=== PATIENT | male | born 1990 | race African-American/Black ===

== ENCOUNTER 2019-05-25 22:36 | Emergency (ER) | payer OTHER ==
[2019-05-25 22:44] VITALS: BP 131/76; PULSE 103; TEMP 98.3; BMI 20.7
--- NOTE | 2019-05-26 00:53 | PDOC ---
Suture Removal/Wound Check HPI - History of Present Illness Chief Complaint: Revisit,Wound Recheck Stated Complaint: WOUND Time Seen by Provider: 05/26/19 00:04 History Source: Yes: Patient Exam Limitations: Yes: No Limitations Treated at: [facility] Date of Last ED visit: 05/23/19 - Previous ED Treatment Type of procedure performed on last visit: Yes: Other Antibiotics Prescribed: Yes - Onset of Previous Treatment Comment:: 05/26/19 00:52 Patient reports erythema and swelling have significant decreased s/p taking 2 days of Bactrim. Patient now has drainage pustule to R elbow, purulent drainage expressed; wound cx sent. Patient continues to have FROM to R elbow, no pain with flexion/ extension. Advised patient to use warm compress 4x daily and to continue abx as prescribed. Advised patient of signs and symptoms for return to ER; patient verbalized understanding and agrees to plan. Past History - Past Medical History Allergies/Adverse Reactions: Allergies Allergy/AdvReac Type Severity Reaction Status Date / Time No Known Allergies Allergy Verified 05/25/19 22:42 COPD: No - Suicide/Smoking/Psychosocial Hx Smoking History: Never smoked *Physical Exam - Vital Signs Last Vital Signs Temp Pulse Resp BP Pulse Ox 98.3 F 103 H 18 131/76 96 05/25/19 22:42 05/25/19 22:42 05/25/19 22:42 05/25/19 22:42 05/25/19 22:42 *DC/Admit/Observation/Transfer Diagnosis at time of Disposition: Wound check, abscess - Discharge Dispostion Disposition: HOME Condition at time of disposition: Stable - Referrals Referrals: Manjinder Arnold MD [Primary Care Provider] - - Patient Instructions Printed Discharge Instructions: DI for Skin Abscess Additional Instructions: As discussed, please continue taking medication as prescribed two days ago. If you develop worsening swelling, redness, or pain to your elbow, or you develop fever, chills, nausea, vomiting, or diarrhea, please return to the ER immediately. - Post Discharge Activity
--- NOTE | 2019-05-26 08:12 | PDOC ---
*Physical Exam - Vital Signs Last Vital Signs Temp Pulse Resp BP Pulse Ox 98.3 F 103 H 18 131/76 96 05/25/19 22:42 05/25/19 22:42 05/25/19 22:42 05/25/19 22:42 05/25/19 22:42 Medical Decision Making - Medical Decision Making 05/26/19 08:12 Case reviewed, agree with assessment and plan *DC/Admit/Observation/Transfer Diagnosis at time of Disposition: Wound check, abscess - Discharge Dispostion Disposition: HOME Condition at time of disposition: Stable - Referrals Referrals: Manjinder Arnold MD [Primary Care Provider] - - Patient Instructions Printed Discharge Instructions: DI for Skin Abscess Additional Instructions: As discussed, please continue taking medication as prescribed two days ago. If you develop worsening swelling, redness, or pain to your elbow, or you develop fever, chills, nausea, vomiting, or diarrhea, please return to the ER immediately. - Post Discharge Activity
== END 2019-05-26 01:18 | disposition home or self-care (01) ==
LOC: JER 22:36
DX: Z48.00 Encounter for change or removal of nonsurgical wound dressing (principal); L02.413 Cutaneous abscess of right upper limb
CPT/HCPCS: 87070; 87186; 87205; 99282-25

== ENCOUNTER 2021-05-25 11:04 | Emergency (ER) | payer OTHER ==
[2021-05-25 11:27] VITALS: BP 143/84; PULSE 89; TEMP 98; BMI 22.1
[2021-05-25] MEDS ORDERED: IBUPROFEN 600 MG TABLET (FP) PO ONE ×2 (12:02→12:06)
== END 2021-05-25 12:08 | disposition home or self-care (01) ==
LOC: JER 11:04
DX: S00.36XA Insect bite (nonvenomous) of nose, initial encounter (principal); W57.XXXA Bitten or stung by nonvenomous insect and other nonvenomous arthropods, initial encounter
CPT/HCPCS: 99283-25